=== PATIENT | female | born 1980 | race Hispanic/Latino ===

== ENCOUNTER 2017-07-20 23:31 | Emergency (ER) | payer SELFPAY ==
[2017-07-21] MEDS ORDERED: VITAMIN B-1 100 MG, FOLVITE 1 MG, INFUVITE 10 ML in NACL 0.9% 1000 ML 1,000 ML IV ONE (00:14)
[2017-07-21] MEDS ORDERED: ZOFRAN IV ONE ×2 (00:15→03:58)
--- NOTE | 2017-07-21 00:18 | Emergency Department Report ---
HPI - General Time Seen by Provider: 07/21/17 00:06 - HPI HPI: 36-year-old female presents to the emergency department with a complaint of nausea, dizziness and alcohol intoxication. Patient called EMS and presented here secondary to the symptoms. Patient says that she does often drink daily but usually does not drink large quantities. However she admits to drinking a large amount today. The last time she had a drink this evening was around 8 or 9 PM. She has a past medical history of hyperthyroidism. She did not take anything for her symptoms prior presentation. She denies any illicit drug use or abuse. No recent travel or sick contacts at home. ED Past Medical Hx - Past Medical History Previous Medical History?: Yes Hx Diabetes: Yes Additional medical history: hyperthyroidism - Social History Smoking Status: Current Every Day Smoker - Medications Home Medications: Home Medications Medication Instructions Recorded Confirmed Last Taken Type ALBUTEROL Inhaler [ProAir HFA 2 puff IH QID PRN #1 inhalation 01/04/14 Unknown Rx Inhaler] Fluticasone [Flonase] 1 spray NS QDAY #1 bottle 01/04/14 Unknown Rx Prednisone [Prednisone 10 mg 10 mg PO .TAPER #1 tab.ds.pk 01/04/14 Unknown Rx (6-Day Pack, 21 Tabs)] Neomy/Polymyx B/Hc (Otic) Soln 4 drops OT TID 10 Days bottle 05/23/14 Unknown Rx [Cortisporin (Otic) Soln] Ondansetron [Zofran Odt] 4 mg PO Q8H PRN #10 tab.rapdis 07/21/17 Unknown Rx ED Review of Systems ROS: Stated complaint: ETOH Other details as noted in HPI Comment: All other systems reviewed and negative Constitutional: denies: chills, fever Eyes: denies: eye pain, eye discharge, vision change ENT: denies: ear pain, throat pain Respiratory: denies: cough, shortness of breath, wheezing Cardiovascular: denies: chest pain, palpitations Gastrointestinal: nausea. denies: vomiting Genitourinary: denies: urgency, dysuria, discharge Musculoskeletal: denies: back pain, joint swelling, arthralgia Skin: denies: rash, lesions Neurological: other (dizziness). denies: numbness, confusion Physical Exam - Physical Exam Vital Signs: Vital Signs 07/21/17 00:12 Temperature 97.2 F L Pulse Rate 74 Respiratory 14 Rate Blood Pressure 106/71 O2 Sat by Pulse 100 Oximetry Physical Exam: GENERAL: Patient appears uncomfortable secondary to her nausea.. HENT: Normocephalic. Atraumatic. Patient has moist mucous membranes. EYES: Extraocular motions are intact. Pupils equal reactive to light bilaterally. NECK: Supple. Trachea is midline. CHEST/LUNGS: Clear to auscultation. There is no respiratory distress noted. HEART/CARDIOVASCULAR: Regular. There is no tachycardia. There is no murmur. ABDOMEN: Abdomen is soft, nontender. No guarding. Patient has normal bowel sounds. There is no abdominal distention. SKIN: Skin is warm and dry. NEURO: The patient is awake, alert, and oriented. The patient is cooperative. The patient has no focal neurologic deficits. The patient has normal speech. MUSCULOSKELETAL: There is no tenderness or deformity. There is no limitation range of motion. There is no evidence of acute injury. ED Course Vital Signs 07/21/17 00:12 Temperature 97.2 F L Pulse Rate 74 Respiratory 14 Rate Blood Pressure 106/71 O2 Sat by Pulse 100 Oximetry ED Medical Decision Making - Lab Data Result diagrams: 07/21/17 00:36 07/21/17 00:36 - Medical Decision Making Patient presented to emergency department with a complaint of some nausea and vomiting, dizziness after using some alcohol today. She is awake and alert, calm and cooperative and appears to have a normal mental capacity. Vital signs stable including being afebrile. However the patient does appear uncomfortable secondary to her nausea. Labs show a mild leukocytosis but there are no signs of infection seen thus far. Urine drug screen positive for marijuana and blood alcohol level is 0.14 at around 2 AM this morning. Patient was given IV fluid resuscitation with thiamine and multivitamins. She was given a couple doses of Zofran for nausea. Eventually the patient started feeling improved and was able to pass an oral challenge. She was seen ambulatory in the emergency department and appeared stable. She will be discharged home to follow up with a primary care physician and has been given some prescription for Zofran. She has been encouraged to stay with further alcohol use/abuse and to return to the emergency Department with any worsening of her symptoms or any acute distress. - Differential Diagnosis alcohol abuse, alcohol intoxication, food poisoning, gastroenteritis Critical Care Time: No Critical care attestation.: If time is entered above; I have spent that time in minutes in the direct care of this critically ill patient, excluding procedure time. ED Disposition Clinical Impression: Alcohol abuse, Dehydration Alcohol intoxication Qualifiers: Complication of substance-induced condition: uncomplicated Qualified Code(s): F10.920 - Alcohol use, unspecified with intoxication, uncomplicated Nausea & vomiting Qualifiers: Vomiting type: unspecified Vomiting Intractability: non-intractable Qualified Code(s): R11.2 - Nausea with vomiting, unspecified Disposition: DC-01 TO HOME OR SELFCARE Is pt being admited?: No Condition: Stable Instructions: Abuse of Alcohol (ED), Alcohol Intoxication (ED), Dehydration (ED ), Acute Nausea and Vomiting (ED) Additional Instructions: Please stop drinking, or at least abusing, alcohol. Follow-up with your primary care physician in the next few days. Increase your oral rehydration. Return to the emergency Department with any worsening of your symptoms or any acute distress. Prescriptions: Ondansetron [Zofran Odt] 4 mg PO Q8H PRN #10 tab.rapdis PRN Reason: Nausea Referrals: PRIMARY CAREMD [Primary Care Provider] - 3-5 Days AMISH BISWAS MD [Staff Physician] - 3-5 Days [facility] [Outside] - 3-5 Days Time of Disposition: 06:20
[2017-07-21 00:49] LABS: Basophils % (Auto) 0.3 % (0.0-1.8); Eosinophils # (Auto) 0.1 K/mm3 (0.0-0.4); Eosinophils % (Auto) 0.4 % (0.0-4.3); Hematocrit 37.9 % (30.3-42.9); Hemoglobin 12.3 gm/dl (10.1-14.3); Lymphocytes # (Auto) 1.3 K/mm3 (1.2-5.4); Lymphocytes % (Auto) 8.2 % (13.4-35.0); Mean Corpuscular HGB Conc 32 % (30-34); Mean Corpuscular Hemoglobin 29 pg (28-32); Mean Corpuscular Volume 89 fl (79-97); Monocytes # (Auto) 0.7 K/mm3 (0.0-0.8); Monocytes % (Auto) 4.4 % (0.0-7.3); Platelet Count 187 K/mm3 (140-440); Red Blood Count 4.25 M/mm3 (3.65-5.03)
[2017-07-21 01:23] LABS: Alanine Aminotransferase 10 units/L (7-56); Albumin 3.9 g/dL (3.9-5); BUN/Creatinine Ratio 18; Blood Urea Nitrogen 9 mg/dL (7-17); Calcium 7.9 mg/dL (8.4-10.2); Hemolysis Index 7
[2017-07-21] MEDS ORDERED: ZOFRAN ONE (03:57)
[2017-07-21 04:23] LABS: Amorphous Crystals,Urine Few; Bilirubin,Urine NEG (Negative); Blood,Urine NEG (Negative); Color,Urine Yellow (Yellow); Mucus,Urine FEW /HPF; Protein,Urine <15 mg/dL mg/dL (Negative); Urobilinogen,Urine < 2.0 mg/dL (<2.0)
[2017-07-21 04:29] LABS: Amphetamine Screen,Urine PRESUMPTIVE NEGATIVE; Benzodiazepines Screen,Urine PRESUMPTIVE NEGATIVE; Cocaine Screen,Urine PRESUMPTIVE NEGATIVE; Methadone Screen,Urine PRESUMPTIVE NEGATIVE; Opiate Screen,Urine PRESUMPTIVE NEGATIVE
[2017-07-21 04:41] LABS: Cannabinoid Screen,Urine PRESUMPTIVE POSITIVE
[2017-07-21] MEDS ORDERED: NACL 0.9% 1000 ML 1,000 ML IV ONE (05:42)
[2017-07-21 06:50] VITALS: BP 109/62
== END 2017-07-21 06:59 | disposition home or self-care (01) ==
LOC: ED 23:31
DX: E86.0 Dehydration (principal); E11.9 Type 2 diabetes mellitus without complications; F10.120 Alcohol abuse with intoxication, uncomplicated; E05.90 Thyrotoxicosis, unspecified without thyrotoxic crisis or storm; F12.10 Cannabis abuse, uncomplicated; Y90.9 Presence of alcohol in blood, level not specified; Z79.899 Other long term (current) drug therapy
CPT/HCPCS: 36415; 80053; 80307; 81001; 84443; 84703; 85025; 96365; 96366; 96375; 96376; 99284; G0480; J2405; J3411; J7030; 80320